=== PATIENT | female | born 1955 | race Caucasian/White ===

== ENCOUNTER → 2019-05-24 13:26 | Outpatient (CLI) | payer BC, MEDICARE, SELFPAY ==
--- NOTE | 2019-05-24 13:30 | ART_ITS ---
Reason For Study: R09.89 Left Segmental Pressures Left brachial= 173mmHg. Left posterior tibial artery = 207mmHg. Left dorsalis pedis artery = 185mmHg. The left dorsalis pedis waveforms are triphasic. The left posterior tibial artery waveforms are triphasic. Right Segmental Pressures Right brachial= 172mmHg. Right posterior tibial artery = 192mmHg. Right dorsalis pedis artery = 190mmHg. The right dorsalis pedis waveforms are triphasic. The right posterior tibial artery waveforms are triphasic. Indices The right ankle brachial index by the dorsalis pedis is 1.1. The right ankle brachial index by the posterior tibial artery is 1.11. The left ankle brachial index by the dorsalis pedis is 1.07. The left ankle brachial index by the posterior tibial artery is 1.2. Interpretation Summary Triphasic Doppler waveforms are noted at ankle level bilaterally. Pulse-volume recording waveform amplitudes are satisfactory at all levels bilaterally, including low-thigh, calf, ankle, and digital levels. Resting ankle-brachial indices are normal bilaterally. There is no evidence of significant arterial occlusive disease in the lower extremities bilaterally. Ordering Physician: Dana Terrell Performed By: LIBBY ROSADO [facility]
== END ==
PROVIDERS: Family Provider Internal Medicine; PCP Internal Medicine; Referring Provider Podiatrist Foot & Ankle Surgery; Visit Provider Podiatrist Foot & Ankle Surgery
DX: R09.89 Other specified symptoms and signs involving the circulatory and respiratory systems (principal)
CPT/HCPCS: 93923

== ENCOUNTER → 2019-07-11 16:30 | Outpatient (CLI) | payer BC, MEDICARE, SELFPAY ==
--- NOTE | 2019-07-11 16:33 | CT_ITS ---
CT of the right knee INDICATION: Pain TECHNIQUE: CT of the right knee was performed in the axial projection without contrast followed by sagittal and coronal reconstructions. Radiographic technique was optimized to limit patient radiation dose. DLP was 499.6 FINDINGS: Bony structures are well-mineralized. There is no evidence for acute fracture or dislocation. There is mild narrowing of the medial compartment of the joint. No lytic destructive changes.. Tiny sclerotic densities in the distal femur and proximal tibia likely representing bone islands. Suprapatella bursal effusion is noted. CT/Extremity Lower without Contra IMPRESSION: Mild degenerative changes and suprapatellar bursal effusion No evidence for acute fracture or other significant bony pathology. If concern for ligamentous or tendinous injury MRI recommended for further evaluation Electronically Signed: Des Wheeler MD at 17:13 EDT , Service support ,
== END ==
PROVIDERS: Family Provider Internal Medicine; PCP Internal Medicine; Referring Provider Physician Assistant Surgical; Visit Provider Physician Assistant Surgical
DX: M25.561 Pain in right knee (principal)
CPT/HCPCS: 73700

== ENCOUNTER 2020-12-06 14:10 | Emergency (ER) | payer BC, MEDICARE, SELFPAY ==
[2020-12-06] VITALS (8 sets, daily range): BP systolic 144–172; BP diastolic 55–90; PULSE 81–88; RESP 14–26; TEMP 36.4–36.6; O2SAT 95–96; BMI 35.5
--- NOTE | 2020-12-06 14:23 | RAD_ITS ---
STUDY: X-RAY CHEST REASON FOR EXAM: Female, 65 years old. DYSPNEA TECHNIQUE: Frontal view of the chest COMPARISON: 19 November 2015 FINDINGS: There are scattered bilateral multifocal nodular opacities. There is no pneumothorax, pulmonary edema, cardiomegaly or pleural effusions. Spinal electrodes terminate in the midthoracic spine. Osseous structures are intact. RAD/Chest 1 View (Portable) IMPRESSION: Bilateral viral pneumonia. Electronically Signed: Jennifer Causey, at 16:05 EST Tel , Service support ,
--- NOTE | 2020-12-06 14:24 | EKG12_ITS ---
Test Reason : SOB Blood Pressure : / mmHG Vent. Rate : 079 BPM Atrial Rate : 079 BPM P-R Int : 154 ms QRS Dur : 084 ms QT Int : 378 ms P-R-T Axes : 029 031 047 degrees QTc Int : 433 ms Normal sinus rhythm Normal ECG Confirmed by BILLIE GARNER, JEFF ([id number]), international editorial producer JENNIFER MORALES ([id number]) on 12/08/2020 10:28:49 AM Referred By: RU Confirmed By:JEFF WISE MD
--- NOTE | 2020-12-06 14:26 | ED.DCSUM_ITS ---
- ER Visit Summary Date of Service: 12/06/20 Chief Complaint: [Shortness of breath] History of Present Illness: The patient is a 65 F [presents to the emergency department complaint of shortness of breath that started yesterday around noon. Patient states it came on rather suddenly. Patient has been using an inhaler and sometimes it seems to help. She does have history of asthma which she developed after having pneumonia a year ago. Patient denies any chest pain. She denies any fever. She denies any cough. She denies exposures to COVID-19. Patient does have history of asthma, hypertension, and GERD. She denies anxiety or increased stress although she states that she just got custody of a [id number] child.] Physical Examination: [HEENT-PERRLA, EOMI. Cranial nerves II through XII grossly intact. TMs clear. Mucous membranes moist. No adenopathy. Cardiovascular-regular rate and rhythm without murmur or ectopy Lungs-good aeration bilaterally. Faint expiratory wheezes noted bilaterally. No accessory muscle use or retractions. Mild tachypnea. No conversational dyspnea. Abdomen-normoactive bowel sounds, soft, nontender, no rebound or rigidity, no peritoneal signs. Extremities-intact ?4, normal range of motion, normal pulses, atraumatic] Test Results: [CBC with differential was unremarkable. Chemistries unremarkable. EKG obtained shows sinus rhythm with a ventricular rate of 79 bpm with no acute ST segment changes. Troponin is less than 0.015. D-dimer was 1.87. Chest x-ray showed bilateral infiltrates. CTA of the chest was negative for PE or dissection however did show bilateral infiltrates consistent with Covid. COVID-19 test was positive.] Emergency Department Course and Treatment: [The line established on arrival. Patient placed on monitor.] Treatment Plan: [Patient will be referred to monoclonal antibody infusion therapy given that she meets criteria. Patient would be interested in pursuing this. Patient advised to return if increasing shortness of breath or condition should worsen anyway.] Disposition: [Discharged home in stable condition] Impression: [] COVID-19 pneumonia This note was generated with [employer] software. It may contain incorrect words, spelling, and punctuation that were not noted in review of the chart prior to signing ED Disposition - Plan for ED Patient: Referrals: Nicky John MD [Primary Care Provider] -
[2020-12-06] MEDS: 0.9% Normal Saline 1,000 ML 150 ML IV (14:39)
[2020-12-06] MEDS: MethylPREDNISolone 125 MG/2 ML Vial 60 MG IV (14:41)
[2020-12-06] MEDS: Ipratropium/Albuterol Sulfate 3 ML AMPUL.NEB INHALATION (14:42)
[2020-12-06 14:50] LABS: Absolute Lymphocyte Count 1.15 X10^3/uL (0.83-4.51); Basophil# 0.02 X10^3/uL; Basophil% 0.3 % (0-1); Eosinophil# 0.05 X10^3/uL; Eosinophils% 0.9 % (0-5); Hematocrit 37.3 % (37-47); Hemoglobin 12.6 g/dL (12.0-15.0); Lymphocyte # 1.15 X10^3/ul (4.0); Lymphocyte % 19.7 % (19-41); Mean Corp Hgb Conc 33.8 g/dL (32-36); Mean Corpuscular Hgb 28.1 pg (27.0-32.0); Mean Corpuscular Volume 83.3 fL (81-99); Mean Platelet Vol. 10.2 fl (6.2-12.0); Monocyte# 0.57 X10^3/uL; Monocyte% 9.8 % (0-10); NRBC Flagged by Analyzer 0 % (0-5); Neutrophil # 4.02 X10^3/uL (2.7-7.7); Platelet Count 270 K/mm3 (150-450); RBC Distribution Width CV 12.4 % (11.6-14.6); RBC Distribution Width SD 37.7 fl (35.1-43.9); Red Blood Count 4.48 M/mm3 (4.2-5.4); White Blood Count 5.8 K/mm3 (4.4-11.0)
[2020-12-06 15:08] LABS: Anion Gap 8 (5-15); BUN 13 mg/dL (7-18); BUN/Creat Ratio 16.2 RATIO (10-20); Calcium,Total 8.8 mg/dL (8.5-10.1); Chloride 107 mmol/L (98-107); EST Glomerular Filtration Rate 77 mL/min (>60); Est Glom Filt Rate - Afr Amer 93 mL/min (>60); Estimated Creatinine Clearance 66.51 ml/min; Glucose 100 mg/dL (74-106); Potassium 3.5 mmol/L (3.5-5.1); Sodium Level 138 mmol/L (136-145)
[2020-12-06 15:11] LABS: D-Dimer Quantitative (DVT/PE) 1.87 FEU/ug/m (0.27-0.49)
--- NOTE | 2020-12-06 15:41 | CT_ITS ---
STUDY: CTA CHEST REASON FOR EXAM: Female, 65 years old. Asthma attack shortness of breath viral infection RADIATION DOSAGE (If Supplied By Facility): CTDIvol = ( 13.63 ) mGy, DLP = ( 515.99 ) mGycm TECHNIQUE: The examination was performed with the intravenous administration of IV 100mL Isovue-370. Post-processing of the angiographic images was performed, with multiplanar reformation and 3D reconstruction. Individualized dose optimization techniques were used for this CT. COMPARISON: 19 November 2015 FINDINGS: There is no acute or chronic pulmonary embolism. Aorta is of normal caliber. There are multifocal bilateral groundglass nodular opacities diffusely distributed throughout both lungs. There is no pneumothorax, pulmonary edema or pleural effusions. There is reactive mediastinal lymphadenopathy. Osseous structures are intact. The liver is fatty infiltrated. Spinal stimulator electrode terminates in the midthoracic region. CT/CTA Chest W/WO Contrast IMPRESSION: 1. No pulmonary embolism 2. Bilateral acute viral pneumonia. 3. Hepatic steatosis. Electronically Signed: Jennifer Causey, at 16:18 EST Tel , Service support ,
--- NOTE | 2020-12-06 16:36 | ED.DEP ---
ED Disposition - Plan for ED Patient: Instructions: Coronavirus Disease 2019 (COVID-19): Caring for Yourself or Others, Coronavirus Disease 2019 (COVID-19): Overview Referrals: Nicky John MD [Primary Care Provider] - 5-7 Days
== END 2020-12-06 17:10 | disposition home or self-care (01) ==
PROVIDERS: Emergency Provider Emergency Medicine; PCP Internal Medicine
DX: U07.1 COVID-19 (principal); J12.82 Pneumonia due to coronavirus disease 2019; J45.909 Unspecified asthma, uncomplicated; I10 Essential (primary) hypertension; K21.9 Gastro-esophageal reflux disease without esophagitis
CPT/HCPCS: 71045; 71275; 80048; 84484; 85025; 85379; 87426; 93005; 94640; 96361; 96374; 99284; J7030; Q9967; A4216

== ENCOUNTER 2020-12-08 12:18 | Outpatient (CLI) | payer BC, MEDICARE, SELFPAY ==
[2020-12-08 12:32] VITALS: BP 132/71; PULSE 80; RESP 20; TEMP 35.9; O2SAT 96
[2020-12-08] MEDS: 0.9% Saline Lock 10 ML Syringe IV (12:48)
[2020-12-08 13:20] VITALS: BP 127/73; PULSE 73; RESP 20; TEMP 36; O2SAT 95
[2020-12-08 13:50] VITALS: BP 145/75; PULSE 73; RESP 20; TEMP 35.9; O2SAT 95
[2020-12-08 14:20] VITALS: BP 147/77; PULSE 73; RESP 18; TEMP 36.4; O2SAT 96
[2020-12-08 14:55] VITALS: BP 138/73; PULSE 73; RESP 18; TEMP 36.1; O2SAT 96
[2020-12-08 15:24] VITALS: BP 132/74; PULSE 73; RESP 18; TEMP 36.4; O2SAT 96
== END 2020-12-08 15:29 | disposition home or self-care (01) ==
LOC: MS2OUT 12:18 → MS2 12:20
PROVIDERS: PCP Internal Medicine; Referring Provider Nurse Practitioner Acute Care; Visit Provider Nurse Practitioner Acute Care
DX: U07.1 COVID-19 (principal)
CPT/HCPCS: 96365; 96366; J7050; M0239; Q0239; A4216

== ENCOUNTER → 2023-06-02 | Outpatient (CLI) | payer MEDICARE, SELFPAY ==
--- NOTE | 2023-06-02 11:29 | CT_ITS ---
STUDY: CT LUMBAR SPINE WITH INTRATHECAL CONTRAST (LUMBAR CT MYELOGRAM) REASON FOR EXAM: Female, 68 years old. STENOSIS RADIATION DOSAGE (If Supplied By Facility): CTDIvol = ( 30.38 ) mGy, DLP = ( 943.69 ) mGycm TECHNIQUE: Transaxial images were obtained from the T12 vertebra through the S1 vertebral level, following intrathecal administration of 20 ml of Isovue-M 200 contrast material, performed by Dr. Maldonado. Please refer to this physicians technical notes for procedural details. Coronal and sagittal reconstructions were obtained. Individualized dose optimization techniques were used for this CT. COMPARISON: Comparison is made with prior study October 04, 2014. FINDINGS: Normal lumbar lordosis. There is no substantial scoliosis. Normal vertebrae of the lumbar spine. There is dependent layering of contrast material in the distal thecal sac. The conus medullaris terminates in a normal position at the L1-L2 level. There is no demonstrated cauda equina nerve root abnormality or intraspinal mass. L1-2: Mild degree of disc space narrowing. No significant stenosis seen. L2-3: Mild degree of disc space narrowing. Spondylosis. Hypertrophy of the facet joints. Mild degree of diffuse posterior disc bulge. Mild degree of bilateral neural foraminal stenosis. L3-4: Mild degree of disc space narrowing. Facet joint osteoarthritis and hypertrophy worse on the right side. Bilateral neural foraminal stenosis worse on the right side. L4-5: Marked degree of disc space narrowing and disc degeneration. Spondylosis. There is evidence of a left herniated disc causing deformity of the left thecal sac and narrowing of the left neural foramen. L5-S1: Mild degree of disc space narrowing. Normal visualized sacroiliac joints. Normal visualized paraspinous soft tissue structures. CT/Spine Lumbar WITH Contrast IMPRESSION: Left posterior disc herniation at the L4-L5 level causing central canal stenosis and left neural foraminal stenosis. Electronically Signed: Jayesh Maldonado MD at 14:16 EDT ,
[2023-06-02 11:48] VITALS: BP 175/74; PULSE 63; RESP 18; TEMP 36.3; O2SAT 98; BMI 36.6
--- NOTE | 2023-06-02 11:50 | RAD_ITS ---
PROCEDURE: LUMBAR MYELOGRAM DATE OF EXAMINATION: June 02, 2023. INDICATION: Female, 68 years old. Low back pain. Spinal stenosis. PHYSICIAN: Jayesh Maldonado M.D. CONSENT: The patient''s history and physical findings were reviewed. The lumbar myelogram procedure was discussed with the patient prior to signing a consent. SEDATION: Local anesthesia with 5 mL of 1% lidocaine was used. FLUOROSCOPY TIME (if supplied): (1:20) minutes/seconds. 51.39 mGy Injection Information: 20 cc of Isovue-M 200 Number of images obtained: 4 TECHNIQUE: Digital fluoroscopy was used to identify a safe approach for the lumbar myelogram. The back was prepped and draped in usual fashion. Local anesthesia was utilized. Under fluoroscopic guidance a 22-gauge spinal needle was inserted into the spinal canal at the L3-L4 level. Clear spinal fluid was seen. 20 mL of Isovue 200 M was injected into the spinal canal. There is good opacification of the spinal fluid. There is evidence of spinal stenosis at the L4-L5 level. Extradural defects are seen at the L2-L3 and L3-L4 levels. Levoscoliosis. RAD/Lumbar Myelogram IMPRESSION: Spinal stenosis at the L4-L5 level with extradural defects at the L2-L3 and L3-L4 levels. The patient tolerated the procedure well. Electronically Signed: Jayesh Maldonado MD at 13:04 EDT ,
[2023-06-02] MEDS: Lidocaine 2% (5ml sdv) 5 ML VIAL.MPF INFILT (12:10)
[2023-06-02 12:30] VITALS: BP 158/75; PULSE 63; RESP 18
[2023-06-02 13:20] VITALS: BP 156/84; PULSE 58; RESP 18
== END | disposition home or self-care (01) ==
LOC: RAD 11:27
PROVIDERS: PCP Internal Medicine; Referring Provider Orthopaedic Surgery; Visit Provider Orthopaedic Surgery
DX: M48.061 Spinal stenosis, lumbar region without neurogenic claudication (principal); M47.26 Other spondylosis with radiculopathy, lumbar region; M51.36 Other intervertebral disc degeneration, lumbar region
CPT/HCPCS: 62304; 72132; Q9965

== ENCOUNTER → 2023-06-14 | Outpatient (CLI) | payer MEDICARE, SELFPAY ==
--- NOTE | 2023-06-14 12:25 | RAD_ITS ---
INDICATION: PRE OP EXAMINATION/TECHNIQUE: X-RAY - XR Chest 2 Views COMPARISON: FINDINGS: LUNGS: No consolidation, edema or effusion. No pneumothorax. MEDIASTINUM AND CARDIOVASCULAR STRUCTURES: Cardiac silhouette not enlarged. Central airways and mediastinal contour are unremarkable. BONES AND SOFT TISSUES: Unremarkable. RAD/Chest PA and Lateral IMPRESSION: No radiographic evidence of acute cardiopulmonary disease. Electronically Signed: Tarun Valdez, at 12:48 EDT ,
[2023-06-14 12:55] LABS: Prothrombin Time (Protime)PT. 12.9 SECONDS (11.7-14.9)
== END | disposition home or self-care (01) ==
LOC: RAD 12:08
PROVIDERS: PCP Internal Medicine; Referring Provider Orthopaedic Surgery; Visit Provider Orthopaedic Surgery
DX: Z01.812 Encounter for preprocedural laboratory examination (principal); Z01.811 Encounter for preprocedural respiratory examination
CPT/HCPCS: 36415; 71046; 85610; 85730

== ENCOUNTER 2023-07-20 10:03 | Observation (INO) | payer MEDICARE, SELFPAY ==
--- NOTE | 2023-07-19 08:42 | CASEMGMT ---
RN ANEL NOTE: Late entry for 07/18/23 @ 1700: Per Suzanne, wound nurse, pt scheduled for OP surgery w/Dr Paula Wed 07/20, will have wound vac placed, and anticipate pt will be ready for d/c from PACU after she recovers. Suzanne states will work on getting wound vac approved through pt's insurance. Call to pt @ home. Introduced self and role. Pt confirms she is aware of the above plan. Discussed C for wound vac care/dsg changes and she is agreeable to same. She states would like [facility] and denies wanting list of other [facility] options. Call to [facility] and left message w/Bettina re: referral. Awaiting response. Pt denied having other d/c planning needs or concerns. Home FUENTESN KIRA CM
[2023-07-20] VITALS (16 sets, daily range): BP systolic 114–173; BP diastolic 61–96; PULSE 55–90; RESP 14–18; TEMP 36.1–37.2; O2SAT 92–99; BMI 36.6
[2023-07-20] MEDS: Lactated Ringers 1,000 ML 15 ML IV ×2 (09:34→11:22)
--- NOTE | 2023-07-20 10:00 | OP.PCM_ITS ---
Problems Associated Problem List Diagnoses (1) Delayed wound healing: Report of Operation Date of Procedure: 07/20/23 Pre-Operative Diagnosis: Delayed wound healing, lumbar Post-Operative Diagnosis: Delayed wound healing, lumbar Surgery/Procedure Performed:: 1. Lumbar irrigation, debridement, wound exploration 2. Application of wound VAC Description of Surgical Findings:: The patient is a 68-year-old female who underwent discectomy surgery. She subsequently developed delayed wound healing with drainage from her incision. The patient has opted for operative intervention understanding the risks to include but not limited to infection, bleeding, damage to nerves arteries and veins, possibility of spinal fluid leak, continued pain, need for further surgery, deep vein thrombosis, pulmonary embolism, heart attack, risk of stroke or The patient was identified in the preoperative holding area. She was then transferred to the operative suite. Once in the operative suite after general endotracheal anesthesia was established the patient was transferred to the operating table in the prone position. All bony prominences were padded accordingly. The lumbar spine was prepped and draped in a standard fashion. The previous midline incision was reopened and taken down to the level of the fascia. A moderate amount of yellow fluid was encountered. This was cultured. The wound was thoroughly irrigated and all necrotic tissue was debrided from the wound and wound margins. The fascial closure was found to be intact. The fascia was opened and explored. No significant fluid or necrotic tissue was found. The wound was again thoroughly irrigated with 3 L from a pulse vascular radiologist. The fascia was then reclosed with PVS #1 suture. A wound VAC was then applied and sealed. Antibiotics were then given after cultures were obtained. Sponge instrument and needle counts were correct at the end of the case. The patient was extubated and taken to the PACU without incident Surgeon: Des Paula Type of Anesthesia: General Specimen's removed: Wound cultures Drains: Wound VAC Estimated Blood Loss (mL): 10 cc Fluids Replaced: 1000 cc Complications None Admit VTE Documentation VTE Present on Admission: No
--- NOTE | 2023-07-20 10:00 | PCM.PN.ORT ---
Subjective Subjective Seen and examined postop. Resting comfortably. Pain controlled. No complaints Objective Data Objective Data Vital Signs: Vital Signs Temp Pulse Resp BP Pulse Ox O2 Del Method 97.0 F L 62 18 173/89 H 99 Room Air 07/20/23 09:18 07/20/23 09:18 07/20/23 09:18 07/20/23 09:18 07/20/23 09:18 07/20/23 09:18 Oxygen Delivery Method Room Air Weight: 220 lb 7.396 oz Body Mass Index (BMI) 36.6 Physical Exam Const alert, oriented x3 and no apparent distress General Appearance: cooperative and comfortable HEENT normocephalic and head/scalp atraumatic Eyes EOMs intact bilaterally and conjunctivae normal Chest inspection of chest normal and palpation of chest normal Resp normal respiratory effort and normal air movement Cardio regular rate, regular rhythm and peripheral pulses 2+ throughout GI soft to palpation, non-tender and non-distended Back/Spine Back/Spine Narrative: Wound VAC in place and functioning Cervical Spine: cervical ROM normal Thoracic Spine / Upper Back: normal to inspection Lumbar Spine / Lower Back: normal to inspection Extremity normal to inspection, full ROM, normal capillary refill, no clubbing, cyanosis or edema and no calf tenderness Skin no rashes or lesions noted General Skin Exam: no breakdown Neuro oriented x3, CN's II-XII intact bilaterally, moves all extremities, no focal motor deficits, no sensory deficits noted and deep tendon reflexes 2+ bilaterally Motor Exam: strength 5/5 throughout and muscle tone normal throughout Assessment & Plan Assessment/Plan (1) Delayed wound healing: PLAN: Okay to admit to observation See orders Discharge planning, likely home tomorrow with home health for wound VAC changes
--- NOTE | 2023-07-20 10:00 | PCM.DC.SUM ---
Providers Date of Admission: 07/20/23 Primary Care Physician: Dr. Nicky John MD Medications at Discharge Home Medications atorvastatin 10 mg tablet 10 mg PO DAILY cholesterol 09/08/17 valacyclovir 1 gram tablet 500 mg PO DAILY 09/08/17 olmesartan 40 mg tablet 40 mg PO DAILY blood pressure 12/06/20 pantoprazole 20 mg tablet,delayed release 40 mg PO DAILY 12/06/20 fluticasone propionate 110 mcg/actuation HFA aerosol inhaler (Flovent HFA) 1 puff inhalation BID allergies 12/08/20 levalbuterol tartrate 45 mcg/actuation aerosol inhaler 2 inh inhalation Q6H PRN ASTHMA 12/08/20 hydrocodone-acetaminophen 5-325mg 5mg-325mg 1 tab PO Q8H PRN Pain 7 days #21 tabs 07/20/23 Hospital Course Operations - (Lumbar irrigation, debridement, wound exploration, application of wound VAC) Summary of Care Provided Minutes Spent on Discharge: 15 Hospital Course: The patient is a 68-year-old female who underwent lumbar I&D, with wound VAC application on 07/20/2023. She was subsequently admitted for observation. The hospitalist was consulted for medical management. She progressed well. Her pain was controlled and she was mobilizing well. Home health was set up for wound VAC changes at home. No significant medical issues were reported. She was subsequently discharged home on 07/21/2023 to follow-up with Dr. Paula in 3 weeks Physical Exam Const alert, oriented x3 and no apparent distress General Appearance: cooperative and comfortable HEENT normocephalic and head/scalp atraumatic Eyes EOMs intact bilaterally and conjunctivae normal Neck full ROM General: normal visual inspection Chest inspection of chest normal and palpation of chest normal Resp normal respiratory effort and normal air movement Effort and Inspection: able to speak in complete sentences Cardio regular rate and peripheral pulses 2+ throughout GI soft to palpation, non-tender and non-distended Back/Spine Back/Spine Narrative: Wound VAC in place and functioning with small amount of serosanguineous fluid present Cervical Spine: cervical ROM normal Thoracic Spine / Upper Back: normal to inspection Lumbar Spine / Lower Back: normal to inspection Extremity normal to inspection, full ROM, normal capillary refill, no clubbing, cyanosis or edema and no calf tenderness Skin no rashes or lesions noted General Skin Exam: no breakdown Neuro oriented x3, CN's II-XII intact bilaterally, moves all extremities, no focal motor deficits, no sensory deficits noted and deep tendon reflexes 2+ bilaterally Motor Exam: strength 5/5 throughout and muscle tone normal throughout Weight / BMI Weight Weight: 220 lb 7.396 oz Body Mass Index (BMI) 36.6 D/C Instructions Discharge Diet: No restrictions Weight Bearing Status: Weight bearing as tolerated Additional Activity Instructions: Home health for wound VAC changes 2 or 3 times a week Call your doctor if your incision/area has: Continuous Slow Oozing, Sudden Increased Bleeding, Increased Pain/ Swelling, Increased Redness, Foul Smelling Discharge and Swelling at the incision site Call your doctor if you observe: Fever of 101 or Higher, Coldness, Increased Pain, Numbness or Tingling, Change in Color, Inability to urinate, Inability to have a bowel movement, Using more than 1 pad per hour, Shortness of breath, Dizziness, Fainting spells, Swelling in the ankles, Chest pain, Prolonged hiccupping, Increased palpitations (irregular heartbeat), Calf discomfort and Uncontrolled pain Additional Dressing/Incision Instructions: Keep wound VAC in place and functioning Please Follow Up With: Des Paula DO When: 3 weeks Meaningful Use Info Meaningful Use Diagnoses (Choose all that apply): None applicable Discharge Plan Admission Admit Date/Time: 07/20/23 10:03 Attending Provider: Des Paula Primary Care Provider: Nicky John Consulting Providers: Cara Chau Instructions Additional Instructions / Restrictions: 1. During your procedure, you received sedation through your IV. Please follow these instructions for the next 24 hours: Do not drive a motor vehicle, do not drink any alcoholic beverages, and do not sign any legal documents or make personal or business decisions. A responsible adult should stay with you at least 6 hours after the procedure. 2. Keep your surgical site/incision clean and the dressing dry and intact. You may use an ice pack at the surgical site to reduce any swelling or discomfort. 3. Monitor the incision site for any signs or symptoms of infection. Watch for redness, excessive swelling or drainage, or continued pain at the incision site after 3 days. Contact your physician immediately for a fever, chills or a temperature of 101.5? F or greater. 4. Take your medication exactly as prescribed by your physician. Do not attempt to wean yourself off any of your medications even though your pain is improving. This process needs to be carefully monitored by your doctor. Take any antibiotics prescribed exactly as directed and until they are gone. 5. Avoid stretching, bending, pulling, twisting or any sudden movements. Do not bend or twist at the waist. 6. No lifting greater than 5 pounds. 7. Do not operate a motor vehicle, equipment or a power tool while taking pain medication 8. Do not have any manipulation done by a chiropractor or any other physician without first consulting with the surgeon 9. Please contact our office if you are even scheduled for a CT scan or an MRI. 10. Please call us if you have any questions, problems or concerns. Discharge Orders/Prescriptions Prescriptions: New hydrocodone-acetaminophen 5-325 mg tablet 1 tab PO Q8H PRN (Reason: Pain) 7 Days Qty: 21 0RF Continued Flovent HFA 110 mcg/actuation HFA aerosol inhaler 1 puff INHALATION BID levalbuterol tartrate 45 mcg/actuation HFA aerosol inhaler 2 inh INHALATION Q6H PRN (Reason: ASTHMA) atorvastatin 10 MG tablet 10 mg PO DAILY valacyclovir 1,000 MG tablet 500 mg PO DAILY pantoprazole 20 MG tablet 40 mg PO DAILY olmesartan 40 MG tablet 40 mg PO DAILY Referrals / Follow Up: Nicky John MD [Primary Care Provider] - Des Paula DO [Med Staff - Active Staff] - Disposition Disposition (needs filled in before D/C Order can be placed): Home Health Service
--- NOTE | 2023-07-20 12:52 | CASEMGMT ---
Discharge Planning Referral sent to [facility] via [facility]. Krystyna Salcido, Discharge Planning Asst.
--- NOTE | 2023-07-20 13:30 | CASEMGMT ---
Addendum entered by Anthony Peoples 07/20/23 15:08: Received call from Bettina @ [facility]. She states they have to bill through a 3rd constitution party for pt's insurance and sometimes it can take weeks to get authorization for C visits. She states they are unable to accept pt. Krystyna, telecommunications network planner, made aware and will work on getting [facility] set up for pt. Home TEMPLETON RN, CM Original Note: KIRA TAM NOTE: Pt has been admitted to [facility] after surgery. Bettina @ [facility] made aware and anticipate pt will be ready for discharge tomorrow. Still awaiting decision re; acceptance for [facility]. Home TEMPLETON RN, CM
[2023-07-20] MEDS: Acetaminophen 500 MG Tablet 1000 MG PO ×2 (14:12→20:50)
--- NOTE | 2023-07-20 15:57 | CASEMGMT ---
Discharge Planning [facility] declined d/t insurance coverage. Referral sent to [facility], [facility], and [facility] via [facility]. Krystyna Salcido, Discharge Planning Asst.
[2023-07-20] MEDS: oxyCODONE 5 MG Tablet PO ×2 (15:59→20:52)
--- NOTE | 2023-07-20 17:16 | PCM.PN.HOSP ---
Reason for Visit Reason for Visit: Diagnoses Other injury of unspecified body region, subsequent encounter (07/20/23) Subjective Subjective Medicine was consulted for medical management after patient's revision of her lumbar surgery. Patient seen at bedside. She was sitting comfortably in bedside chair, conversing normally, in no acute distress. She reported mild low back pain at the site of the procedure, but otherwise had no acute concerns. She is currently tolerating a clear liquid diet well. No other acute complaints at this time. Objective Data Objective Data Vital Signs: Vital Signs Temp Pulse Resp BP Pulse Ox O2 Del Method O2 Flow Rate 98.0 F 73 18 114/76 93 Room Air 2 07/20/23 17:04 07/20/23 17:04 07/20/23 17:04 07/20/23 17:04 07/20/23 17:04 07/20/23 17:04 07/20/23 15:39 Oxygen Flow Rate (L/min) 2 Oxygen Delivery Method Room Air Weight: 100 kg Body Mass Index (BMI) 36.6 Intake & Output: Intake and Output for Last 24 Hours 07/18/23 07/19/23 07/20/23 23:59 23:59 23:59 Intake Total 1000 / 1000 Balance 1000 / 1000 Lab / Micro Data Micro: Microbiology 07/20/23 10:50 Incision/Surgical Site Gram Stain - Final 07/20/23 10:50 Incision/Surgical Site Gram Stain - Final Physical Exam Const alert, oriented x3, no apparent distress, average body habitus, healthy appearing and well nourished Constitutional Narrative: Pleasant female, obese, sitting comfortably in bedside chair, conversing normally, no acute distress. General Appearance: cooperative, comfortable, well kempt and well developed HEENT normocephalic, head/scalp atraumatic, hearing grossly normal bilaterally, nasal mucous membranes and turbinates normal and moist oral mucous membranes Eyes PERRL, EOMs intact bilaterally and conjunctivae normal Neck full ROM, no lymphadenopathy and supple Lymph Lymphatic: no lymphadenopathy noted Chest inspection of chest normal Resp normal respiratory effort, normal air movement, no use of accessory muscles and clear to auscultation bilaterally Cardio regular rate, regular rhythm, no murmurs and peripheral pulses 2+ throughout GI normal to inspection, nondistended, normoactive bowel sounds, soft to palpation, non-tender and non-distended Back/Spine Back/Spine Narrative: Wound VAC noted over lumbar spine incision site. Draining serosanguineous fluid. Bandage appears clean and dry. Extremity normal to inspection, full ROM and no pedal edema Skin no rashes or lesions noted Psych mental status grossly normal Assessment & Plan Assessment/Plan (1) Delayed wound healing: PLAN: Plan Patient is a 68-year-old female with history significant for recent lumbar discectomy surgery in May who presented to [facility] on 07/20/2023 with delayed wound healing. 1. Delayed wound healing of lumbar discectomy site s/p surgical revision ? Surgical revision with wound VAC placement on by Dr. Paula with orthopedics today. Patient tolerated procedure well, no acute postop complications. Patient notably completed 2 courses of Keflex after her first procedure, but given new drainage and need for surgical revision seem to fail Keflex. Surgical cultures pending. Was given Ancef postop today. Will discuss with surgery on need for further antibiotics at this time. Pain control with scheduled Tylenol, oxycodone and IV morphine as needed. Likely discharge home tomorrow with home health care for wound VAC changes. 2. Hypertension ?Continue home ARB. Minor procedures today, no need to check BMP tomorrow. 3. Hyperlipidemia ? Continue home atorvastatin. DVT prophylaxis: SCDs CODE STATUS: Full code, unverified Expected disposition: Home with home health care, tomorrow Total clinical time spent by myself addressing the patient's medical issues, reviewing all the data, and collaborating with patient's care team: 25 minutes. Charges/Coding Visit Charges Inpatient E&M: 77152 [facility] Hosp L1
[2023-07-20] MEDS: Cefazolin 1 GM/50 ML BAG IV (18:39)
[2023-07-20] MEDS: Albuterol 2.5 MG/3 ML VIAL.NEB. INHALATION (19:03)
[2023-07-20] MEDS: Budesonide Respules 0.5 MG/2 ML AMPUL.NEB. INHALATION (19:03)
[2023-07-20] MEDS: Atorvastatin Calcium 10 MG Tablet PO (20:50)
[2023-07-20] MEDS: Acyclovir 200 MG Capsule 400 MG PO (20:52)
[2023-07-21 00:56] VITALS: BP 134/60; PULSE 72; RESP 16; TEMP 37.3; O2SAT 96
[2023-07-21] MEDS: Lactated Ringers 1,000 ML 15 ML IV (03:23)
[2023-07-21] MEDS: Cefazolin 1 GM/50 ML BAG IV (03:23)
[2023-07-21 06:00] VITALS: BP 150/84; PULSE 69; RESP 16; TEMP 36.9; O2SAT 94
[2023-07-21] MEDS: Acetaminophen 500 MG Tablet 1000 MG PO (06:20)
--- NOTE | 2023-07-21 06:33 | PN.HOSP_ITS ---
Reason for Visit Reason for Visit: Diagnoses Other injury of unspecified body region, subsequent encounter (07/20/23) Subjective Subjective Patient with no acute vents overnight per self or per nursing report. She is up in her room walking this morning with VAC in place with only serosanguineous drainage and notes she is feeling great and eager for discharge. Patient denies fevers, chills, nausea, emesis, abdominal pain, chest pain or dyspnea. Objective Data Objective Data Vital Signs: Vital Signs Temp Pulse Resp BP Pulse Ox O2 Del Method O2 Flow Rate 98.5 F 69 16 150/84 H 94 Room Air 2 07/21/23 06:00 07/21/23 06:00 07/21/23 06:00 07/21/23 06:00 07/21/23 06:00 07/21/23 06:00 07/20/23 15:39 Oxygen Flow Rate (L/min) 2 Oxygen Delivery Method Room Air Weight: 220 lb 7.396 oz Body Mass Index (BMI) 36.6 Intake & Output: Intake and Output for Last 24 Hours 07/19/23 07/20/23 07/21/23 23:59 23:59 23:59 Intake Total 1050 / 1050 290.25 / 290.25 Balance 1050 / 1050 290.25 / 290.25 Lab / Micro Data Micro: Microbiology 07/20/23 10:50 Incision/Surgical Site Gram Stain - Final 07/20/23 10:50 Incision/Surgical Site Gram Stain - Final Physical Exam Narrative Physical Examination: General: Awake, alert, oriented x 3 and cooperative, initially walking in the room without issue, notes pain is controlled Skin: Normal color, normal turgor, no icterus, no cyanosis except for posterior lumbar region with upper incision intact however the lower section which had been opened has a VAC in place with only serosanguineous drainage noted in the canister and no marked periregional erythema. HEENT: AT/NC, EOMI, PERRLA, MMM. Lungs: CTA bilaterally, moderate effort, mild decrease BL bases, no rales, ronchi or wheezing. Heart: Regular rate and rhythm; no gallop, rub audible. Abdomen: Soft, obese, NTTP, ND, normal BS. Extremities: No cyanosis, clubbing, or edema. Neurological: Patient awake, alert, oriented as noted, cognitive function intact; pupils equally reactive to light and accommodation, cranial nerves II- XII grossly normal, moving all 4 extremities, no focal deficits, strength preserved. Psychiatric: Affect appears normal, no acute evidence of depressive or anxiety feelings. Assessment & Plan Assessment/Plan (1) Delayed wound healing: PLAN: Plan The patient is a 68 y/o F w/ PMHx: Obesity, Asthma, GERD, HTN, HLD, Rheumatoid arthritis who presents to the [facility] on 07/20/23 secondary to delayed would healing of the lumbar region s/p prior discectomy surgery. #1. Delayed Lumbar Wound Healing s/p discectomy surgery: Failed conservative therapies and treatments, admitted per Dr. Paula, 07/20/23 s/p Lumbar irrigation, debridement, wound exploration and placement of wound VAC. Post-operative pain management, bowel regimen, DVT Prophylaxis per [facility] surgery discretion. From most recent note they intend likely discharge today if remains appropriate. #2. Chronic asthma with allergic rhinitis: Will temporally hold home inhalers and transition the interim to ATC budesonide therapy, PRN albuterol, HOB, IS parameters. #3. Obesity: Weight loss and lifestyle changes encouraged. #4. Hypertension: Continue home regimen including losartan, PRN hydralazine. #5. Hyperlipidemia: We will continue patient on statin therapy. #6. GERD: We will continue patient on PPI. #7. DVT prophylaxis: SCDs, chemoprophylaxis per surgery discretion given recent OR. Charges/Coding Visit Charges Inpatient E&M: 85824 Subs Hosp L2
[2023-07-21] MEDS: Budesonide Respules 0.5 MG/2 ML AMPUL.NEB. INHALATION (07:15)
[2023-07-21] MEDS: Albuterol 2.5 MG/3 ML VIAL.NEB. INHALATION (07:15)
[2023-07-21 07:34] VITALS: BP 143/58; PULSE 77; PULSE 80; RESP 18; TEMP 36.4; O2SAT 94
[2023-07-21 07:45] VITALS: PULSE 82; RESP 19
[2023-07-21] MEDS: Acyclovir 200 MG Capsule 400 MG PO (07:48)
[2023-07-21] MEDS: Losartan Potassium 100 MG Tablet PO (07:48)
[2023-07-21] MEDS: Pantoprazole Sodium 20 MG Tablet 40 MG PO (07:48)
[2023-07-21] MEDS: Ensure Surgery 237 ML LIQUID PO (07:50)
[2023-07-21 08:57] VITALS: O2SAT 93
--- NOTE | 2023-07-21 09:26 | CASEMGMT ---
Discharge Planning [facility] has accepted patient, soc tomorrow. [facility] Krystyna Salcido, Discharge Planning Asst.
--- NOTE | 2023-07-21 10:07 | PHA.DC_ITS ---
Pharmacy [facility] has performed discharge medication reconciliation and counseling for this patient. The patient was counseled on the following discharge medications and changes in medications for homegoing were reviewed. 1. NORCO The Reason for Use, instructions for use, and potential side effects were reviewed for all new medications. The patient's questions regarding all of their medications were answered. The patient was able to verbally demonstrate an understanding of their discharge medications. The patient's discharge medication list was reviewed for discrepancies and discrepancies were resolved. Patient was counselled by Shelley Corado PharmD Candidate Medications at Discharge Home Medications atorvastatin 10 mg tablet 10 mg PO DAILY cholesterol 09/08/17 valacyclovir 1 gram tablet 500 mg PO DAILY 09/08/17 olmesartan 40 mg tablet 40 mg PO DAILY blood pressure 12/06/20 pantoprazole 20 mg tablet,delayed release 40 mg PO DAILY 12/06/20 fluticasone propionate 110 mcg/actuation HFA aerosol inhaler (Flovent HFA) 1 puff inhalation BID allergies 12/08/20 levalbuterol tartrate 45 mcg/actuation aerosol inhaler 2 inh inhalation Q6H PRN ASTHMA 12/08/20 hydrocodone-acetaminophen 5-325mg 5mg-325mg 1 tab PO Q8H PRN Pain 7 days #21 tabs 07/20/23
--- NOTE | 2023-07-21 10:48 | CASEMGMT ---
KIRA TAM NOTE: [facility] has accepted w/SOC tomorrow. Info entered into d/c plan. KIRA TAM to room. Introduced self and role. Pt sitting up in chair in room. Made aware of [facility] acceptance and SOC tomorrow. She was provided w/[facility] phone number. She denies having any other d/c planning needs or concerns. Per Suzanne Wound nurse, wound vac has been approved by insurance. Plan: Home w/[facility], SOC tomorrow. Home [place] RN CM
--- NOTE | 2023-07-21 11:13 | WOUNDNOTE ---
Home VAC had been approved yesterday and was applied by Dr Paula in the OR. VAC dressing currently intact at 125mmHg low continuous suction.
== END 2023-07-21 11:30 | disposition home health service (06) ==
LOC: SDC 11:34 → MS3 11:34
PROVIDERS: Admitting Provider Orthopaedic Surgery; PCP Internal Medicine; Referring Provider Orthopaedic Surgery; Visit Provider Orthopaedic Surgery
PROC: (CPT 13160; principal; 2023-07-20 10:30)
DX: T81.31XA Disruption of external operation (surgical) wound, not elsewhere classified, initial encounter (principal); M06.9 Rheumatoid arthritis, unspecified; M51.26 Other intervertebral disc displacement, lumbar region; M48.061 Spinal stenosis, lumbar region without neurogenic claudication; Y83.8 Other surgical procedures as the cause of abnormal reaction of the patient, or of later complication, without mention of misadventure at the time of the procedure; E66.9 Obesity, unspecified; I10 Essential (primary) hypertension; E78.00 Pure hypercholesterolemia, unspecified; K21.9 Gastro-esophageal reflux disease without esophagitis; Z79.899 Other long term (current) drug therapy; J45.909 Unspecified asthma, uncomplicated; Z68.36 Body mass index [BMI] 36.0-36.9, adult; M79.7 Fibromyalgia; M47.26 Other spondylosis with radiculopathy, lumbar region
CPT/HCPCS: 13160; 00300; 87070; 87075; 87077; 87102; 87186; 87205; 87206; 94640; 94668; 96365; 96366; 97161; 99221; 99252; J7120; G0378; G0463; J2405

== ENCOUNTER → 2023-12-28 | Outpatient (CLI) | payer MEDICARE, SELFPAY ==
--- NOTE | 2023-12-28 14:02 | CT_ITS ---
STUDY: CT MAXILLOFACIAL SINUSES REASON FOR EXAM: Female, 68 years old. CHRONIC SINUTISIS RADIATION DOSAGE (If Supplied By Facility): CTDIvol = ( 33.06 ) mGy, DLP = ( 734.68 ) mGycm TECHNIQUE: The patient was scanned in a multi detector CT scanner. High resolution axial imaging was performed without the administration of intravenous contrast material. Sagittal and coronal images were reconstructed. Individualized dose optimization techniques were used for this CT. COMPARISON: None. FINDINGS: FRONTAL SINUSES: Normal aeration, with minimal mucosal inflammatory disease. ETHMOIDAL SINUSES: Normal aeration, with minimal mucosal inflammatory disease. MAXILLARY SINUSES: Normal aeration, with moderate mucosal inflammatory disease. SPHENOIDAL SINUSES: Normal aeration, without mucosal inflammatory disease. Left ostiomeatal complex is occluded, the right is significantly narrowed. Normal bilateral middle turbinates. Normal bilateral inferior turbinates. Normal midline nasal septum. There is patency of the bilateral nasal airways. The visualized osseous structures are normal. The visualized bilateral orbital contents are normal. CT/Sinus/Facial Bone IMPRESSION: Minimal mucosal thickening noted in the frontal and ethmoid sinuses. Moderate mucosal thickening noted in the maxillary sinuses Occlusion of the left ostiomeatal complex, the right show significant narrowing No demonstrated fracture or suspicious osseous lesion No suspicious soft tissue swelling or induration of the subcutaneous fat to suspect inflammatory process Electronically Signed: Lonnie Scott MD at 14:32 EST ,
== END | disposition home or self-care (01) ==
PROVIDERS: PCP Internal Medicine; Referring Provider Otolaryngology; Visit Provider Otolaryngology
DX: J32.9 Chronic sinusitis, unspecified (principal)
CPT/HCPCS: 70486

== ENCOUNTER → 2024-07-09 | Outpatient (CLI) | payer MEDICARE, SELFPAY ==
--- NOTE | 2024-07-09 | KNEE_PTH ---
PATIENT: HIPOLITO LIM [facility] U#:[id number] AGE/SX: 69/F ROOM: RE07/09/[address]: Dr. Armond Ferrari MD : [id number] BED: DIS: 07/09/2024 SPEC #: [id number] RECD: 07/09/24 15:04 STATUS: [place] REShiva #: [id number] RENAY: 07/09/24 00:[address]: Armond Ferrari DEPT: SURGICAL PATHOLOGY RECD BY: Vic Garcia ENTERED: 07/10/24 06:55 SP TYPE: TOTAL KNEE OTHR DR: Dr. Nicky John MD [facility] Tissues: Knee, NOS Procedures: Decalcification bone/plaque Surgery Specimen Level IV HEADER OPERATION: Right total knee arthroplasty PRE-OP DIAGNOSIS: Unilateral post-traumatic osteoarthritis, right knee TISSUE SUBMITTED: Bone and soft tissue right knee MICROSCOPIC DIAGNOSIS Bone and tissue of right knee, total knee resection: Severe degenerative joint disease. Mild synovial hyperplasia. AM: 07/13/2024 MICROSCOPIC DESCRIPTION Slides are reviewed. GROSS DESCRIPTION Received is one container designated bone and soft tissue right knee. The specimen consists of multiple fragments of lyon-yellow bone measuring in aggregate 11.0 x 11.0 x 3.0 cm. Also in the specimen container are multiple fragments of yellow-white soft tissue measuring in aggregate 6.5 x 6.0 x 2.0 cm. A number of bony fragments contain articular surfaces consistent with tibial plateau and femoral condyle and displaying prominent osteophyte formation, eburnation and bone erosion. Nursing Admin sections are submitted in two cassettes as follows: 1 - soft tissue, 2 - bone after decalcification. / RADHIKA. 07/10/2024 TC:5 [facility]: [id number], [id number]
== END | disposition home or self-care (01) ==
PROVIDERS: PCP Internal Medicine; Referring Provider Orthopaedic Surgery; Visit Provider Orthopaedic Surgery
DX: M17.31 Unilateral post-traumatic osteoarthritis, right knee (principal); S89.91XS Unspecified injury of right lower leg, sequela; X58.XXXS Exposure to other specified factors, sequela
CPT/HCPCS: 88305; 88311